=== PATIENT | female | born 1995 | race African-American/Black ===

== ENCOUNTER 2021-06-09 09:08 | Outpatient (REF) | payer OTHER, SELFPAY ==
[2021-06-09 10:51] LABS: Binax Internal Control QC Valid; Binax Now Covid-19 Ag Positive (Negative)
== END 2021-06-09 09:09 | disposition home or self-care (01) ==
LOC: HO.LAB 09:08
PROVIDERS: Visit Provider Internal Medicine
DX: Z20.822 Contact with and (suspected) exposure to COVID-19 (principal)
CPT/HCPCS: 36415; C9803

== ENCOUNTER 2021-06-16 09:06 | Outpatient (REF) | payer OTHER, SELFPAY ==
[2021-06-16 10:54] LABS: Binax Internal Control QC Valid; Binax Now Covid-19 Ag Negative (Negative)
== END 2021-06-16 09:07 | disposition home or self-care (01) ==
LOC: HO.LAB 09:06
PROVIDERS: Visit Provider Internal Medicine
DX: Z20.822 Contact with and (suspected) exposure to COVID-19 (principal)
CPT/HCPCS: C9803

== ENCOUNTER 2021-06-21 09:14 | Outpatient (REF) | payer OTHER, SELFPAY ==
[2021-06-21 11:34] LABS: Binax Internal Control QC Valid; Binax Now Covid-19 Ag Negative (Negative)
== END 2021-06-21 09:15 | disposition home or self-care (01) ==
LOC: HO.LAB 09:14
PROVIDERS: Visit Provider Internal Medicine
DX: Z20.822 Contact with and (suspected) exposure to COVID-19 (principal)
CPT/HCPCS: C9803

== ENCOUNTER 2021-06-28 08:14 | Outpatient (REF) | payer OTHER, SELFPAY ==
[2021-06-28 09:41] LABS: Binax Now Covid-19 Ag Negative (Negative)
[2021-06-28 09:42] LABS: Binax Internal Control QC Valid
== END 2021-06-28 08:15 | disposition home or self-care (01) ==
LOC: HO.LAB 08:14
PROVIDERS: Visit Provider Internal Medicine
DX: Z20.822 Contact with and (suspected) exposure to COVID-19 (principal)
CPT/HCPCS: C9803

== ENCOUNTER → 2022-11-21 14:22 | Outpatient (BNVA) | payer OTHER, SELFPAY | PROVIDERS: Visit Provider Internal Medicine Rheumatology | DX: M25.561 Pain in right knee (principal); M25.562 Pain in left knee; M79.641 Pain in right hand; I73.00 Raynaud's syndrome without gangrene | CPT/HCPCS: 99212 ==

== ENCOUNTER 2023-05-15 13:13 | Outpatient (AMB) | payer OTHER, SELFPAY ==
--- NOTE | 2023-05-15 13:27 | A.OFFVIS_ITS ---
Intake Vital Signs 05/15/23 13:28 Height 5 ft 2 in Weight 201 lb 15.095 oz BMI 36.9 BP 98/72 Blood Pressure Location Rt brachial Position Sitting Pulse 111 H Pulse Source Pulse Oximeter Intake Visit Reasons: raynaud Intake Note: Patient presents today to follow up on Raynaud's. Last seen by Deshawn 11/21/22. 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 She recently delivered a baby on the 28 of April. She says within a couple of days she had worsening of her chronic pains. This included pain in the lower back radiating to the buttocks, pain along the extensor tendon of the thumbs, bilateral knee pain, and foot pain. She did not notice any swelling. Symptoms tend to come and go but they seem to be are more persistent in the thumbs where she gets more symptoms with more activity. She does take [id number] acetaminophen for this without much improvement. She does not recall the pain in the thumbs from before. In the past I had seen her when she was . It looked like she had some fibromyalgia going on for 4 or 5 years.9 [facility] Medical History (Updated 05/15/23 @ 14:29 by Yannick Camacho MD) Chronic constipation Migraines Depression Asthma Anxiety Surgical History S/P laparoscopic surgery Family History Mother Epilepsy Father Meneses's palsy Other Family history of arthritis Social History Alcohol intake: current Alcohol intake frequency: does not drink Patient Tobacco Use Status: Never used Tobacco Review of Systems Const Details: Negative for appetite change, weight change, fever, chills, malaise and fatigue Eyes Details: Negative for vision change, dry eyes,headaches and dizziness ENT Details: Some oral dryness. Negative for hearing change, tinnitus, oral ulcer, nose bleeds. Card Details: Negative chest pain, edema and syncope Resp Details: Negative for SOB, cough and wheezing GI Details: Negative indigestion/heartburn, nausea, abdominal pain, bowel changes, diarrhea, constipation and bloody stool. Details: She has had 4 pregnancies. None were complicated. Negative for dysuria, hematuria, nocturia, decreased force/flow and genital discharge Skin/Breast Details: Intermittent Raynaud's symptoms in the hands. Negative for itching, rash, hives, sun sensitivity, and skin cancer Endo Details: Negative for polyuria and polydypsia Curtis/Lymph Details: Negative for excessive bruising or bleeding. Physical Exam Vital Signs: Last Vital Signs Pulse 111 H 05/15/23 13:28 BP 98/72 05/15/23 13:28 BMI result Body Mass Index 36.9 APPEARANCE: Patient in no acute distress EYES no redness, pupils equal and reactive to light, eyelids normal THROAT: Oral mucosa moist, no ulcerations NECK: No thyromegaly or masses, no adenopathy, trachea midline. HEART: Regulrar rhythm, S1-S2 heard, no murmurs, rubs or gallops. LUNG: Clear to percussion and auscultation ABD: Normal bowel sounds, no organomegaly, masses or tenderness. EXTREMITIES: No edema, no calf tenderness, normal peripheral pulses. SKIN: No inflammatory or neoplastic lesions. Normal color and turgor JOINT EXAM: Cervical Spine:.? Full range of motion without pain; no tenderness. Thoracic Spine:.? No scoliosis.? No tenderness on palpation. Lumbar Spine:.? Alignment normal.? Full range of motion without pain, no tenderness. Chest Wall:.? No tenderness, swelling, increased warmth or erythema. Hands: Right: Slight tenderness without swelling at the 2nd through 4th MCP. There is mild tenderness along the thumb extensor tendon. The area does not look red or swollen. Elsewhere there is no triggering, thenar atrophy or sensory loss. Left:? Mild to moderate pain along the thumb extensor tendon with no redness or swelling. Elsewhere in the hand she has normal pain-free range of motion without tenderness, swelling, increased warmth or erythema. No triggering, sensory loss or thenar atrophy. Wrists:. Right: Mild discomfort with 80 degrees flexion or extension; this is mostly felt along the thumb extensor tendon. There is no redness or swelling. Left:? Mild pain with flexion or extension at 60 degrees. Most of this is felt along the thumb extensor tendon where there is mild tenderness along the tendon but no swelling, increased warmth or erythema. Elbows:. Normal pain-free range of motion without tenderness, swelling, increased warmth or erythema. Shoulders:.??Right: Mild pain with extremes of abduction and more than 20 degrees of external rotation. This discomfort is mostly felt over the trapezius posteriorly. There is some slight anterior and posterior tenderness without abductor weakness or adenopathy. Left: Full range of motion without pain. No tenderness, weakness, swelling, increased warmth or erythema. Hips:.? Full range of motion with mild lumbar discomfort at the extremes of abduction or external rotation. No groin pain with motion. Hip bursa:.? Mild right trochanteric tenderness. Knees: Right: Mild pain with extremes of flexion extension. Mild medial tenderness without redness or effusion. No patellofemoral crepitus or popliteal tenderness. Left:?? Normal pain-free range of motion without tenderness, swelling, increased warmth or erythema.? There is no effusion or crepitation Ankles:.? Right: Slight tenderness but normal pain-free range of motion. No swelling. Left: Normal pain-free range of motion without tenderness, swelling, increased warmth or erythema. Feet:.? Normal pain-free range of motion without tenderness, swelling, increased warmth or erythema. Tender points:? Mild tenderness to digital palpation at both trapezius, 2nd ribs, knees, greater trochanter area bilaterally. Results Reviewed Results Reviewed: [facility] Result ReportPatient:Marcello Salmeron of Service:01/05/21Patient ID:[id number]??Patient Gender:FemaleOrdering Provider: Jalen TabortaineDOB:1995???FinalX-RAY EXAM OF HAND, 3+ VIEWSExam Date: 01/05/2021 11:30 AMAccession #:[id number] Diagnosis:Chronic hand pain, unspecified laterality ?BILATERAL HANDS, 3 VIEWS EACH?HISTORY: Chronic hand pain.?FINDINGS:?There is no acute fracture, malalignment, joint effusion, soft tissue abnormality, or radiopaque foreign body in either hand.?IMPRESSIONIMPRESSION: Normal bilateral hands.??Reading Radiologist: [facility] [place] Imaging Result Report Patient: Samreen Salmeron Date of Service: 01/05/21 ? ? Patient Gender: Female Ordering Provider: Jalen Schmidt : 1995 ? ? ? Final X-RAY EXAM OF LOWER SPINE WITH OBLIQUES Exam Date: 01/05/2021 11:30 AM Ordering Diagnosis: Chronic bilateral low back pain with bilateral sciatica ? History: Chronic bilateral low back pain with bilateral sciatica. ? Lumbosacral spine, 4 views: ? FINDINGS: Bony structures are radiographically intact. ? There are 4 nonrib-bearing lumbar vertebrae. ? Minor curvature of the lower spine, convexity to the right. ? There are no compression deformities. ? Other structures are unremarkable. ? IMPRESSION 4 nonrib-bearing lumbar vertebrae. ? Minor curvature of the lumbar spine which may be due to positioning, paravertebral muscle spasm spasm or minor underlying scoliosis.. ? Reading Radiologist: Assessment & Plan Assessment & Plan (1) Hand pain, right: Code(s): M79.641 - Pain in right hand (2) Raynaud's disease without gangrene: Comment: 2020: Neg TSEIRNG, Scl70,RF, CCP, ANCA, Lupus AC, anti-cardiolipin, anti-beta 2 microblobulin Code(s): I73.00 - Raynaud's syndrome without gangrene (3) De Quervain's tenosynovitis, bilateral: Code(s): M65.4 - Radial styloid tenosynovitis [de Quervain] (4) Fibromyalgia: Code(s): M79.7 - Fibromyalgia Plan She is having more musculoskeletal pain after delivery. I still do not see signs of an active inflammatory arthritis. There is some define tenderness along the thumb extensor tendons consistent with some de Quervain tenosynovitis. This is a common sequelae of . Some of her other pains also could be related to being . She does have many tender points so I think does have some element of fibromyalgia. She experienced some benefit previously with cyclobenzaprine so we will try that again for nighttime use. She was warned that it could be sedating. She will stay with the topical diclofenac gel if needed. We will recheck some of her inflammatory markers and antibody studies. Follow-up in 3-4 months is recommended. Orders: Orders Complete Blood Count Auto Diff Today I73.00 - Raynaud's syndrome without gangrene, M79.641 - Pain in right hand C Reactive Protein Today I73.00 - Raynaud's syndrome without gangrene, M79.641 - Pain in right hand Erythrocyte Sedimentation Rate Today I73.00 - Raynaud's syndrome without gangrene, M79.641 - Pain in right hand TSERING Reflex Titer and Pattern Today I73.00 - Raynaud's syndrome without gangrene, M79.641 - Pain in right hand Comprehensive Met. Panel Today I73.00 - Raynaud's syndrome without gangrene, M79.641 - Pain in right hand Protein Creatinine Ratio, Ur Today I73.00 - Raynaud's syndrome without gangrene, M79.641 - Pain in right hand Sjogren's Antibodies Today I73.00 - Raynaud's syndrome without gangrene, M79.641 - Pain in right hand Rheumatoid Factor Today I73.00 - Raynaud's syndrome without gangrene, M79.641 - Pain in right hand Cyclic Citrullinated Peptide Today I73.00 - Raynaud's syndrome without gangrene, M79.641 - Pain in right hand Medications: New [thumb spints(SPICA)] use at night 2 ea 0RF M65.4 - Radial styloid tenosynovitis [de Quervain] cyclobenzaprine 5 - 10 mg (1 - 2 x 5 mg) PO BEDTIME PRN 30 tabs 2RF muscle spasm M79.7 - Fibromyalgia Coding Level of Care Code Est Pt Level 3 (60095) Diagnoses Hand pain, right M79.641 Raynaud's disease without gangrene I73.00 De Quervain's tenosynovitis, bilateral M65.4 Fibromyalgia M79.7
[2023-05-15 13:28] VITALS: BP 98/72; PULSE 111; BMI 36.9
== END 2023-05-15 14:31 | disposition home or self-care (01) ==
LOC: HO.RHE 13:13
PROVIDERS: Visit Provider Internal Medicine Rheumatology
DX: M79.641 Pain in right hand (principal); I73.00 Raynaud's syndrome without gangrene; M65.4 Radial styloid tenosynovitis [de Quervain]; M79.7 Fibromyalgia
CPT/HCPCS: 99213

== ENCOUNTER → 2023-05-15 13:13 | Outpatient (BNVA) | payer OTHER, SELFPAY | PROVIDERS: Visit Provider Internal Medicine Rheumatology | DX: M79.641 Pain in right hand (principal); M79.7 Fibromyalgia; M65.4 Radial styloid tenosynovitis [de Quervain]; I73.00 Raynaud's syndrome without gangrene | CPT/HCPCS: 99212 ==

== ENCOUNTER 2023-08-15 13:11 | Outpatient (AMB) | payer OTHER, SELFPAY ==
[2023-08-15 13:16] VITALS: BP 110/74; PULSE 79; TEMP 36.2; O2SAT 99; BMI 41.0
--- NOTE | 2023-08-15 13:16 | A.OFFVIS_ITS ---
Intake Vital Signs 08/15/23 13:16 Height 5 ft 2 in Weight 224 lb 3.362 oz BMI 41.0 BP 110/74 Blood Pressure Location Rt brachial Position Sitting Pulse 79 Pulse Source Pulse Oximeter Temp 97.2 F Temp Source Skin Pulse Oximetry (%) 99 Oxygen Delivery Method Room Air Intake Visit Reasons: dequervains Intake Note: Patient last seen 05/15/[address] Camacho, presents today for follow up and test results. 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 Joseph 27-year-old female, accompanied by her fiance returns for follow-up. This patient has known Raynaud's disease and multiple areas of pain. She has 5 children- delivered a baby on the April. She says within a couple of days she had worsening of her chronic pains. This included pain in the lower back radiating to the buttocks, pain along the extensor tendon of the thumbs, bilateral knee pain, and foot pain. She did not notice any swelling. Symptoms tend to come and go but they seem to be are more persistent in the thumbs where she gets more symptoms with more activity. She does take lqtg-sru-gaahmxu acetaminophen for this without much improvement. She does not recall the pain in the thumbs from before. It looked like she had some fibromyalgia going on for 4 or 5 years. Her fiance seemed to be interested in learning whether or not the patient can receive SSI for her chronic pain [facility] Medical History (Updated 05/15/23 @ 14:29 by Yannick Camacho MD) Chronic constipation Migraines Depression Asthma Anxiety Surgical History S/P laparoscopic surgery Family History Mother Epilepsy Father Meneses's palsy Other Family history of arthritis Social History Alcohol intake: current Alcohol intake frequency: does not drink Patient Tobacco Use Status: Never used Tobacco Review of Systems Const All systems reviewed & are unremarkable except as noted in HPI and below Physical Exam Vital Signs: Last Vital Signs Temp 97.2 F 08/15/23 13:16 Pulse 79 08/15/23 13:16 BP 110/74 08/15/23 13:16 Pulse Ox 99 08/15/23 13:16 Oxygen Delivery Method Room Air 08/15/23 13:16 BMI result Body Mass Index 41.0 APPEARANCE: Patient in no acute distress EYES no redness, pupils equal and reactive to light, eyelids normal THROAT: Oral mucosa moist, no ulcerations NECK: No thyromegaly or masses, no adenopathy, trachea midline. HEART: Regulrar rhythm, S1-S2 heard, no murmurs, rubs or gallops. LUNG: Clear to percussion and auscultation ABD: Normal bowel sounds, no organomegaly, masses or tenderness. EXTREMITIES: No edema, no calf tenderness, normal peripheral pulses. SKIN: No inflammatory or neoplastic lesions. Normal color and turgor JOINT EXAM: Cervical Spine:.? Full range of motion without pain; no tenderness. Thoracic Spine:.? No scoliosis.? No tenderness on palpation. Lumbar Spine:.? Alignment normal.? Full range of motion without pain, no tenderness. Chest Wall:.? No tenderness, swelling, increased warmth or erythema. Hands: Right: Minimal tenderness without swelling at the 2nd through 4th MCP. There is mild tenderness along the thumb extensor tendon positive Cricket. The area does not look red or swollen. Elsewhere there is no triggering, thenar atrophy or sensory loss. Left:? Mild to moderate pain along the thumb extensor tendon with no redness or swelling, positive Cricket. Elsewhere in the hand she has normal pain-free range of motion without tenderness, swelling, increased warmth or erythema. No triggering, sensory loss or thenar atrophy. Wrists:. Right: Mild discomfort with 80 degrees flexion or extension; this is mostly felt along the thumb extensor tendon. There is no redness or swelling. Left:? Mild pain with flexion or extension at 60 degrees. Most of this is felt along the thumb extensor tendon where there is mild tenderness along the tendon but no swelling, increased warmth or erythema. Elbows:. Normal pain-free range of motion without tenderness, swelling, increased warmth or erythema. Shoulders:.??Right: Mild pain with extremes of abduction and more than 20 degrees of external rotation. This discomfort is mostly felt over the trapezius posteriorly. There is some slight anterior and posterior tenderness without abductor weakness or adenopathy. Left: Full range of motion without pain. No tenderness, weakness, swelling, increased warmth or erythema. Hips:.? Full range of motion with mild lumbar discomfort at the extremes of abduction or external rotation. No groin pain with motion. Hip bursa:.? Mild right trochanteric tenderness. Knees: Right: Mild pain with extremes of flexion extension. Mild medial ten derness without redness or effusion. No patellofemoral crepitus or popliteal tenderness. Left:?? Normal pain-free range of motion without tenderness, swelling, increased warmth or erythema.? There is no effusion or crepitation Ankles:.? Right: Slight tenderness but normal pain-free range of motion. No swelling. Left: Normal pain-free range of motion without tenderness, swelling, increased warmth or erythema. Feet:.? Normal pain-free range of motion without tenderness, swelling, increased warmth or erythema. Tender points:? Mild tenderness to digital palpation at both trapezius, 2nd ribs, knees, greater trochanter area bilaterally. Results Reviewed Results Reviewed: [facility] Imaging Result ReportPatient:Bonita Salmeronate of Service:01/05/21Patient ID:[id number]??Patient Gender:FemaleOrdering Provider: Jalen HarrisonOB:1995???FinalX-RAY EXAM OF HAND, 3+ VIEWSExam Date: 01/05/2021 11:30 AMAccession #:[id number] Diagnosis:Chronic hand pain, unspecified laterality ?BILATERAL HANDS, 3 VIEWS EACH?HISTORY: Chronic hand pain.?FINDINGS:?There is no acute fracture, malalignment, joint effusion, soft tissue abnormality, or radiopaque foreign body in either hand.?IMPRESSIONIMPRESSION: Normal bilateral hands.??Reading Radiologist: [facility] Imaging Result Report Patient: Samreen Salmeron Date of Service: 01/05/21 ? ? Patient Gender: Female Ordering Provider: Jalen Schmidt : 1995 ? ? ? Final X-RAY EXAM OF LOWER SPINE WITH OBLIQUES Exam Date: 01/05/2021 11:30 AM Ordering Diagnosis: Chronic bilateral low back pain with bilateral sciatica ? History: Chronic bilateral low back pain with bilateral sciatica. ? Lumbosacral spine, 4 views: ? FINDINGS: Bony structures are radiographically intact. ? There are 4 nonrib-bearing lumbar vertebrae. ? Minor curvature of the lower spine, convexity to the right. ? There are no compression deformities. ? Other structures are unremarkable. ? IMPRESSION 4 nonrib-bearing lumbar vertebrae. ? Minor curvature of the lumbar spine which may be due to positioning, paravertebral muscle spasm spasm or minor underlying scoliosis.. ? Reading Radiologist: Assessment & Plan Assessment & Plan (1) Raynaud's disease without gangrene: Comment: 2020: Neg TSERING, Scl70,RF, CCP, ANCA, Lupus AC, anti-cardiolipin, anti-beta 2 microblobulin Code(s): I73.00 - Raynaud's syndrome without gangrene (2) De Quervain's tenosynovitis, bilateral: Code(s): M65.4 - Radial styloid tenosynovitis [de Quervain] Plan # Raynaud's: Discussed at length and educated patient on the disease process. Upon inquiry the patient says her fingers do get very numb when they are cold. Encouraged her to keep her hands warm, to use warmers during the winter time, and to keep her core warm. She denies any other symptoms of crest or CTD. # de Quervain tenosynovitis bilaterally: There is some define tenderness along the thumb extensor tendons consistent with some de Quervain tenosynovitis. This is a common sequelae of . Some of her other pains also could be related to being . # polyarthralgia/fibromyalgia: I do not see a clinical picture for inflammatory arthritis. Her inflammatory markers an antibody studies continue to be negative. She does have many tender points so I think does have some element of fibromyalgia and she is having more musculoskeletal pain after delivery. She experienced some benefit previously with cyclobenzaprine and so she can continue with that. She was warned that it could be sedating. She will stay with the topical diclofenac gel if needed the patient says it has not effective. I have also prescribed meloxicam 15 mg per day. I recommend that she can discuss with her primary care treatment for fibromyalgia such as gabapentin. Patient prefers to call the office if needed I spent 35 minutes reviewing history evaluating patient and documenting Medications: New meloxicam 15 mg PO DAILY 90 tabs 1RF M65.4 - Radial styloid tenosynovitis [de Quervain] Coding Level of Care Code Est Pt Level 3 (60815) Diagnoses Raynaud's disease without gangrene I73.00 De Quervain's tenosynovitis, bilateral M65.4
== END 2023-08-15 14:12 | disposition home or self-care (01) ==
PROVIDERS: PCP Family Medicine; Visit Provider Nurse Practitioner Family
DX: I73.00 Raynaud's syndrome without gangrene (principal); M65.4 Radial styloid tenosynovitis [de Quervain]
CPT/HCPCS: 99213

== ENCOUNTER → 2023-08-15 13:11 | Outpatient (BNVA) | payer OTHER, SELFPAY | PROVIDERS: PCP Family Medicine; Visit Provider Nurse Practitioner Family | DX: I73.00 Raynaud's syndrome without gangrene (principal); M65.4 Radial styloid tenosynovitis [de Quervain] | CPT/HCPCS: 99212 ==